=== PATIENT | female | born 1975 | race Caucasian/White ===

== ENCOUNTER 2018-11-19 11:13 | Emergency (ER) | payer MEDICAID, OTHER | END 2018-11-19 13:03 | disposition home or self-care (01) | LOC: FTE 11:13 | DX: N61.0 Mastitis without abscess (principal) | CPT/HCPCS: 99283; Z7502 ==

== ENCOUNTER 2019-03-09 04:55 | Emergency (ER) | payer MEDICAID | END 2019-03-09 05:47 | disposition home or self-care (01) | LOC: FTE 04:55 | DX: N64.4 Mastodynia (principal); N61.0 Mastitis without abscess ==

== ENCOUNTER 2019-05-06 06:59 | Emergency (ER) | payer MEDICAID ==
[2019-05-06 07:52] LABS: URINE BLOOD (Dip) POC 1+ (NEGATIVE); URINE GLUCOSE (Dip) POC Negative (NEGATIVE); URINE KETONES (Dip) POC 3+ (NEGATIVE); URINE LEUKOCYTE EST (Dip) POC Negative (NEGATIVE); URINE NITRITE (Dip) POC Negative (NEGATIVE); URINE TOTAL PROTEIN POC 2+ (NEGATIVE)
[2019-05-06] MEDS: LIDOCAINE 1% (MPF) 5 ML VIAL INJ (07:56)
[2019-05-06] MEDS: CEFTRIAXONE 1 GM INJ IM (07:56)
== END 2019-05-06 08:27 | disposition home or self-care (01) ==
LOC: FTE 06:59
DX: N61.0 Mastitis without abscess (principal)
CPT/HCPCS: 81003; 96372; 99284-25